=== PATIENT | female | born 1985 | race Two or more races ===

== ENCOUNTER 2019-08-25 02:24 | Emergency (ER) | payer SELFPAY ==
[~2019-08-25] VITALS: Ht 162.6 cm; Wt 45.4 kg
[2019-08-25] MEDS ORDERED: Morphine Sulfate 4mg/ml Inj (IV USE ONLY) IVP ONE (03:00)
[2019-08-25] MEDS ORDERED: Clindamycin 600mg 50 ML IVPB ONE (03:00)
--- NOTE | 2019-08-25 03:00 | NUR ---
ED Nurse Note: Recieved pt from home here with c/o abcess like lesion to left face / chin area with swelling, redness, pus drainage and pain, pt noted x 3 days, pt admits to poking at wound with possible dirty needle, pt is IV dryg user and admits to use, denies any other complaints or discomforts, pt also noted with mild fever, pt took tylenol right before coming. MD aware, pt gowned and palced on monitoring.
[2019-08-25] MEDS ORDERED: Lidocaine 1% Plain 30 ml INJ ONE (03:15)
[2019-08-25] MEDS ORDERED: HYDROCODON-ACE1 EA15 ORAL (03:28)
[2019-08-25] MEDS ORDERED: CLINDAMYCIN HC300 MG ORAL (03:28)
--- NOTE | 2019-08-25 03:28 | Emergency Room Report ---
History of Present Illness General Chief Complaint: Pain Source: Patient Present Illness HPI Is a 34-year-old female with a history of IV drug use. She presents with chief complaint of left chin swelling. Onset for last 3 days. Initially was a small pimple she tried to pop it. Now is more swollen. Fever today. Pain is 9 out of 10. Worse with movement. Worse with palpation. No nausea no vomiting. Denies any other complaint. Allergies: Coded Allergies: No Known Allergies (Unverified , 08/25/19) Patient History Past Medical History: see triage record, old chart reviewed Past Surgical History: none Pertinent Family History: none Social History: Reports: drug use Now: No Immunizations: other Reviewed Nursing Documentation: PMH: Agreed; PSxH: Agreed Nursing Documentation-PMH Past Medical History: No Stated History Review of Systems Eye: Denies: eye pain, blurred vision ENT: Denies: ear pain, nose congestion, throat swelling Respiratory: Denies: cough, shortness of breath Cardiovascular: Denies: chest pain, palpitations Gastrointestinal: Denies: abdominal pain, diarrhea, nausea, vomiting Musculoskeletal: Denies: back pain, joint pain Skin: Denies: rash Neurological: Denies: headache, numbness Endocrine: Denies: increased thirst, increased urine Hematologic/Lymphatic: Denies: easy bruising All Other Systems: negative except mentioned in HPI Physical Exam Vital Signs Date Time Temp Pulse Resp B/P (MAP) Pulse Ox O2 Delivery O2 Flow Rate FiO2 08/25/19 02:51 100.0 106 18 112/77 (89) 98 Room Air Vitals with fever Sp02 EP Interpretation: reviewed, normal General Appearance: well appearing, no apparent distress, alert Head: normocephalic, atraumatic Eyes: bilateral eye PERRL, bilateral eye EOMI ENT: hearing grossly normal, normal pharynx, other - Chin: On the left side of the chin, there is edema and erythema. Near the lip area there is a necrotic area with slight purulent discharge. No dental abscess. Neck: full range of motion, supple, no meningismus Respiratory: chest non-tender, lungs clear, normal breath sounds Cardiovascular #1: regular rate, rhythm, no murmur Gastrointestinal: normal bowel sounds, non tender, no mass, no organomegaly, no bruit, non-distended Musculoskeletal: back normal, gait/station normal, normal range of motion Psychiatric: mood/affect normal Procedures Incision and Drainage Incision and Drainage : Consent: Verbal Site: Chin Blade Size: 11 I & D Procedure: betadine prep Wound Location: face Irrigated w/ Saline (ccs): 500 Anesthesia: 1% Lidocaine Volume Anesthetic (ccs): 3 Patient Tolerated: Well Complications: None Progress Area cleaned with chlorhexidine. Local anesthetic with 1% lidocaine without epinephrine. I made a 1 cm incision over the necrotic area. Remove necrotic tissue. Wound explored. Small amount of pus expressed. Irrigated. Patient tolerated procedure without any problem. Medical Decision Making Diagnostic Impression: Primary Impression: Abscess of chin ER Course An abscess and cellulitis of her chin. Most likely MRSA. Antibiotics IV given here. Wound I&D. Will discharge home. Last Vital Signs Date Time Temp Pulse Resp B/P (MAP) Pulse Ox O2 Delivery O2 Flow Rate FiO2 08/25/19 02:51 100.0 106 18 112/77 (89) 98 Room Air Status: improved Disposition: HOME, SELF-CARE Condition: Stable Scripts Hydrocodone/Acetaminophen 5-325* (HYDROCODONE/ACETAMINOPHEN 5-325*) 1 Each Tablet 1 TAB ORAL Q6H PRN for For Pain, #10 TAB 0 Refills Prov: Ruiz White MD 08/25/19 Clindamycin Hcl (CLINDAMYCIN HCL) 300 Mg Capsule 300 MG ORAL THREE TIMES A DAY, #21 CAP Prov: Ruiz White MD 08/25/19 Additional Instructions: Keep wound clean. Clean first with hydroperoxide and apply antibiotic ointment. Follow-up in 2 days for recheck. Either come back here or follow-up with your doctor. Return if worse. Ruiz White MD Aug 25, 2019 03:28
[2019-08-25 03:40] VITALS: BP 112/77
--- NOTE | 2019-08-25 03:40 | NUR ---
ER DISCHARGE NOTE: Patient is cleared to be discharged per ERMD, pt is aox4, on room air, with stable vital signs. pt was given dc and prescription instructions, pt was able to verbalize understanding, pt id band and iv site removed without complications. pt is able to ambulate with steady gait. pt took all belongings. MD completed I and D procedure at bedside, moferate amount of pus like drainange returned, area cleaned and dry dressing applied as ordered, pt d/c with spouse.
== END 2019-08-25 03:40 | disposition home or self-care (01) ==
LOC: EMR 03:00
DX: L02.01 Cutaneous abscess of face (principal)
CPT/HCPCS: 10060; 96365; 96375; 99284; J2001; J2270; J2405; S0077